=== PATIENT | female | born 1960 | race Caucasian/White ===

== ENCOUNTER → 2016-04-20 | Outpatient (CLI) | payer OTHER ==
[~2016-04-20] MED LIST: ASA325 MG PO; CARDIZEM CD180 MG PO; CRESTOR10 MG PO; EVISTA DPS60 MG PO; FEOSOL-DPS325 MG PO; FLONASE 0.05% D16 GM NS; KLOR-CON M2020 ME1 PO; LASIX DPS80 MG PO; LOPRESSOR DPS50 MG PO; OXY IR DPS5 MG PO; PRILOSEC DPS20 MG PO; SPIRONOLACT50 MG PO; THERA1 EACH PO; ULTRAM DPS50 MG PO; VITAMIN D50000 UNIT PO
== END | disposition home or self-care (01) ==
LOC: RAD.S 07:08
DX: Z12.31 Encounter for screening mammogram for malignant neoplasm of breast (principal)